=== PATIENT | female | born 1960 | race Caucasian/White ===

== ENCOUNTER → 2016-10-22 | Day surgery (SDC) | payer OTHER ==
[2016-10-17 10:23] VITALS: BMI 43.0
[~2016-10-22] VITALS: Ht 177.8 cm; Wt 135.9 kg
[~2016-10-22] MED LIST: AMLO-110 PO; ATOR10TA82 PO; CYM/30 PO; HYDC25 PO; LIDOCAINE HCL 2% 2 ML VIAL (20MG/ML) ONE; METO100T44 PO; NYST1POW7 TOP; OMEP40CA PO; ONDANSETRON INJ 2 MG/ML 2 ML VIAL IV PRN; PROPOFOL IV EMULSION 10 MG/ML 20 ML VIAL IV ONE; ROPI5TAB PO
[2016-10-22 08:41] VITALS: Ht 177.8 cm; Wt 135.9 kg
--- NOTE | 2016-10-22 09:10 | Endo History and Physical ---
History & Physical Date of Service: Oct 22, 2016. Chief Complaint: Hx of polyps,acid reflux,change in bowel habits Referring Physician: Dr Hinson History of Present Illness Patient with a history of colon polyps and reflux for a surveillance colonoscopy and EGD today. Notes having progressive diarrhea over the past few months, no new medications or recent abx courses. Past Medical History Reflux, Hypertension, Depression Past Surgical History Hx Cardiac Surgery: No Hx Abdominal Surgery: No Hx Post-Op Nausea and Vomiting: No Hx Cancer Surgery: No Hx Thoracic Surgery: No Hx Orthopedic: Yes (LUMBAR DISCECTOMY) Hx Urinary Tract Surgery: No Family History IBD Social History Smoking Status: Never Smoker Hx Substance Use: No Hx Alcohol Use: No Allergies Coded Allergies: Morphine (Verified Adverse Reaction, Mild, NAUSEA/VOMITING, 10/17/16) Current Medications Reported Home Medications Medications Dose Route/Sig Max Daily Dose Days Date Category Toprol-Xl (Metoprolol Succinate) 100 Mg Tabcr 100 Mg PO QAM 10/17/16 Reported Norvasc (Amlodipine Besylate) 5 Mg Tab 5 Mg PO QAM 10/17/16 Reported Requip (Ropinirole HCl) 5 Mg Tab 10 Mg PO HS 09/25/16 Reported Cymbalta (Duloxetine HCl) 30 Mg Cap 1 Cap PO HS 30 01/04/16 Reported Nystatin (Nystatin (Topical)) 1 Pow Pow 1 Appl TOP BID PRN 06/10/13 Reported Lipitor (Atorvastatin Calcium) 10 Mg Tab 10 Mg PO QAM 06/10/13 Reported Prilosec (Omeprazole) 40 Mg Capcr 40 Mg PO BID 06/10/13 Reported Hctz * (Hydrochlorothiazide) 25 Mg Tab 25 Mg PO QAM 04/16/11 Reported Vital Signs Weight (Kilograms): 135.91 Height (Feet): 5 Height (Inches): 10 Date Time Temp Pulse Resp B/P (MAP) Pulse Ox O2 Delivery O2 Flow Rate FiO2 10/22/16 09:01 36.8 82 20 176/103 (127) 96 Room Air Physical Exam General Appearance: no apparent distress Respiratory/Chest: Auscultation: breath sounds normal Cardiovascular: Heart Auscultation: RRR Abdomen: Inspection & Palpation: soft Assessment and Plan Patient for EGD and colonoscopy for evaluation of diarrhea / globus sensation. We have discussed the risks to include bleeding, infection, perforation, pain, and missed polyps. Plan EGD Colonoscopy
--- NOTE | 2016-10-22 09:49 | Discharge Instructions ---
Endoscopy Patient Instructions Date / Procedure(s) Performed Oct 22, 2016. Colonoscopy, EGD Allergy Information Coded Allergies: Morphine (Verified Adverse Reaction, Mild, NAUSEA/VOMITING, 10/17/16) Discharge Date / Findings Oct 22, 2016. 1 colon polyp Internal hemorrhoids several gastric polyps Medication Instructions Reported Home Medications Medications Dose Route/Sig Max Daily Dose Days Date Category Toprol-Xl (Metoprolol Succinate) 100 Mg Tabcr 100 Mg PO QAM 10/17/16 Reported Norvasc (Amlodipine Besylate) 5 Mg Tab 5 Mg PO QAM 10/17/16 Reported Requip (Ropinirole HCl) 5 Mg Tab 10 Mg PO HS 09/25/16 Reported Cymbalta (Duloxetine HCl) 30 Mg Cap 1 Cap PO HS 30 01/04/16 Reported Nystatin (Nystatin (Topical)) 1 Pow Pow 1 Appl TOP BID PRN 06/10/13 Reported Lipitor (Atorvastatin Calcium) 10 Mg Tab 10 Mg PO QAM 06/10/13 Reported Prilosec (Omeprazole) 40 Mg Capcr 40 Mg PO BID 06/10/13 Reported Hctz * (Hydrochlorothiazide) 25 Mg Tab 25 Mg PO QAM 04/16/11 Reported Provider Instructions Activity Restrictions - No exercising or heavy lifting for 24 hours. - Do not drink alcohol the day of the procedure. - Do not drive a car or operate machinery until the day after the procedure. - Do not make any important decisions or sign important papers in 24 hours after the procedure. Following Day: - Return to full activity which may include returning to work/school. Diet Start your diet with liquids and light foods (jello, soup, juice, toast). Then eat your usual diet if not nauseated. Treatment For Common After Affects For mild abdominal pain, bloating, or excessive gas: - Rest - Eat lightly - Lie on right side Follow-Up Information Await pathology results No evidence of GERD today as cause of the "globus symptoms" consider an ENT evaluation Anesthesia Information What You Should Know You have had a procedure that required some medicine to reduce anxiety and discomfort. This treatment is called moderate sedation. After receiving the treatment, you may be sleepy, but you will be able to breathe on your own. The effects of the treatment may last for several hours. Follow these instructions along with Activity/Diet recommendations noted above: * Do NOT do anything where dizziness or clumsiness would be dangerous. * Rest quietly at home today, then you can be up and about tomorrow. * Have a responsible person stay with you the rest of today. * You may have had an I.V. today. If so, you may take the dressing off later today. Recommendations Call your doctor if: * Trouble breathing * Continuous vomiting for more than 24 hours * Temperature above 101 degrees * Severe abdominal pain or bloating * Pain not relieved by pain medicine ordered * There is increased drainage or redness from any incision * A large amount of rectal bleeding greater than 2-3 tablespoons. (If you had a polyp/s removed or have hemorrhoids, a small amount of blood - from the rectum is to be expected.) * You have any unanswered questions or concerns. IN THE EVENT OF A SERIOUS EMERGENCY, GO TO THE NEAREST EMERGENCY ROOM Your discharge instructions were prepared by provider Marija Myers. Patient Instructions Signature Page Yaima Jacobs Patient (or Guardian) Signature/Date: I have read and understand the instructions given to me by my caregivers. Caregiver/RN/Doctor Signature/Date: The above-named patient and/or guardian has received patient instructions on this date. + Original Patient Signature Page (only) stays with chart. Please make copy for patient.
--- NOTE | 2016-10-22 09:54 | GI REPORT ---
Procedure Date: 10/22/2016 9:10 AM Procedure: Upper GI endoscopy Indications: Diarrhea, Globus sensation Medicines: Monitored Anesthesia Care Complications: No immediate complications. Estimated blood loss: Minimal. Estimated Blood Loss: Estimated blood loss was minimal. Procedure: Pre-Anesthesia Assessment: - Prior to the procedure, a History and Physical was performed, and patient medications, allergies and sensitivities were reviewed. The patient's tolerance of previous anesthesia was reviewed. - The risks and benefits of the procedure and the sedation options and risks were discussed with the patient. All questions were answered and informed consent was obtained. - Patient identification and proposed procedure were verified prior to the procedure by the physician, the nurse and the results technician. The procedure was verified in the procedure room. - Pre-procedure physical examination revealed no contraindications to sedation. - ASA Grade Assessment: III - A patient with severe systemic disease. - After reviewing the risks and benefits, the patient was deemed in satisfactory condition to undergo the procedure. - The anesthesia plan was to use moderate sedation/analgesia (conscious sedation). - The anesthesia plan was to use monitored anesthesia care (MAC). - Immediately prior to administration of medications, the patient was re-assessed for adequacy to receive sedatives. - The heart rate, respiratory rate, oxygen saturations, blood pressure, adequacy of pulmonary ventilation, and response to care were monitored throughout the procedure. - The physical status of the patient was re-assessed after the procedure. After obtaining informed consent, the endoscope was passed under direct vision. Throughout the procedure, the patient's blood pressure, pulse, and oxygen saturations were monitored continuously. The scope was introduced through the mouth, and advanced to the third part of duodenum. The upper GI endoscopy was accomplished without difficulty. The patient tolerated the procedure well. Findings: The examined esophagus was normal. The Z-line was regular and was found 39 cm from the incisors. Diffuse mild inflammation characterized by erythema and granularity was found in the entire examined stomach. Biopsies were taken with a cold forceps for histology. Estimated blood loss was minimal. Multiple 4 to 7 mm semi-sessile polyps with no bleeding and no stigmata of recent bleeding were found in the entire examined stomach. Biopsies were taken with a cold forceps for histology. The examined duodenum was normal. Biopsies for histology were taken with a cold forceps for evaluation of celiac disease. Estimated blood loss was minimal. Impression: - Normal esophagus. - Z-line regular, 39 cm from the incisors. - Gastritis. Biopsied. - Multiple gastric polyps. Biopsied. - Normal examined duodenum. Biopsied. Recommendation: - Perform a colonoscopy today. - Await pathology results. - There was no obvious cause of the globus sensation by EGD today. Consider an ENT evalaution if symptoms persist. Marija Myers D.O. Marija Myers, DO 10/22/2016 9:53:58 AM This report has been signed electronically. Note Initiated On: 10/22/2016 9:10 AM I attest to the content of the Intraoperative Record and orders documented therein, exceptions below
--- NOTE | 2016-10-22 09:57 | GI REPORT ---
Procedure Date: 10/22/2016 9:28 AM Procedure: Colonoscopy Indications: High risk colon cancer surveillance: Personal history of colonic polyps, Incidental diarrhea noted Medicines: Monitored Anesthesia Care Complications: No immediate complications. Estimated blood loss: Minimal. Estimated Blood Loss: Estimated blood loss was minimal. Procedure: Pre-Anesthesia Assessment: - Prior to the procedure, a History and Physical was performed, and patient medications, allergies and sensitivities were reviewed. The patient's tolerance of previous anesthesia was reviewed. - The risks and benefits of the procedure and the sedation options and risks were discussed with the patient. All questions were answered and informed consent was obtained. - Patient identification and proposed procedure were verified prior to the procedure by the physician, the nurse and the management services technician. The procedure was verified in the procedure room. - Pre-procedure physical examination revealed no contraindications to sedation. - ASA Grade Assessment: III - A patient with severe systemic disease. - After reviewing the risks and benefits, the patient was deemed in satisfactory condition to undergo the procedure. - The anesthesia plan was to use monitored anesthesia care (MAC). - Immediately prior to administration of medications, the patient was re-assessed for adequacy to receive sedatives. - The heart rate, respiratory rate, oxygen saturations, blood pressure, adequacy of pulmonary ventilation, and response to care were monitored throughout the procedure. - The physical status of the patient was re-assessed after the procedure. After I obtained informed consent, the scope was passed under direct vision. Throughout the procedure, the patient's blood pressure, pulse, and oxygen saturations were monitored continuously. The scope was introduced through the anus and advanced to the cecum, identified by appendiceal orifice and ileocecal valve. The colonoscopy was performed without difficulty. The patient tolerated the procedure well. The quality of the bowel preparation was good. Findings: The perianal and digital rectal examinations were normal. Pertinent negatives include normal sphincter tone. Normal mucosa was found in the entire colon. Biopsies for histology were taken with a cold forceps from the entire colon for evaluation of microscopic colitis. Fluid aspiration was performed through the scope suction channel. Sample(s) were sent for bacterial cultures, Clostridium difficile and ova and parasites. A 5 mm polyp was found in the descending colon. The polyp was sessile. The polyp was removed with a cold biopsy forceps. Resection and retrieval were complete. Estimated blood loss was minimal. Internal hemorrhoids were found during retroflexion. The hemorrhoids were mild. The exam was otherwise without abnormality. Impression: - Normal mucosa in the entire examined colon. Biopsied. Fluid aspiration performed. - One 5 mm polyp in the descending colon, removed with a cold biopsy forceps. Resected and retrieved. - Internal hemorrhoids. - The examination was otherwise normal. Recommendation: - Discharge patient to home (ambulatory). - Advance diet as tolerated today. - Await pathology results. - Repeat colonoscopy in 5 years for surveillance based on pathology results. - Return to nurse practitioner PRN. Marija Myers D.O. Marija Myers, 10/22/2016 9:56:56 AM This report has been signed electronically. Note Initiated On: 10/22/2016 9:28 AM I attest to the content of the Intraoperative Record and orders documented therein, exceptions below
[2016-10-22 10:07] VITALS: BP 129/78; PULSE 62; O2SAT 97
--- NOTE | 2016-10-22 10:11 | Anesthesiology Progress Note ---
Anesthesia Post Op Note Date & Time Oct 22, 2016 at 10:11 Vital Signs Pain Intensity: 0 Vital Signs Past 12 Hours Date Time Temp Pulse Resp B/P (MAP) Pulse Ox O2 Delivery O2 Flow Rate FiO2 10/22/16 10:07 62 20 129/78 (95) 97 Room Air 10/22/16 09:52 64 20 114/65 (81) 98 Room Air 10/22/16 09:01 36.8 82 20 176/103 (127) 96 Room Air Notes Mental Status: alert / awake / arousable, participated in evaluation Pt Amnestic to Procedure: Yes Nausea / Vomiting: adequately controlled Pain: adequately controlled Airway Patency, RR, SpO2: stable & adequate BP & HR: stable & adequate Hydration State: stable & adequate Anesthetic Complications: no major complications apparent
[2016-10-29 13:44] LABS: CRYPTOSPORIDIUM AG TC 37213 NOT DETECTED (NOT DETECTED); ISOSPORA+CYCLOSPORA NOT DETECTED (NOT DETECTED); O&P GIARDIA AG NOT DETECTED (NOT DETECTED); O&P SOURCE OTHER-STY
== END | disposition home or self-care (01) ==
LOC: C.GI 08:32
PROVIDERS: ATTEND Internal Medicine Gastroenterology
DX: Z12.11 Encounter for screening for malignant neoplasm of colon (principal); D12.4 Benign neoplasm of descending colon; K64.8 Other hemorrhoids; Z86.010 Personal history of colon polyps; K31.7 Polyp of stomach and duodenum; K29.50 Unspecified chronic gastritis without bleeding; K52.9 Noninfective gastroenteritis and colitis, unspecified; I10 Essential (primary) hypertension; K21.9 Gastro-esophageal reflux disease without esophagitis; F32.9 Major depressive disorder, single episode, unspecified; Z83.79 Family history of other diseases of the digestive system; Z79.899 Other long term (current) drug therapy; K29.80 Duodenitis without bleeding

== ENCOUNTER → 2017-07-28 | Day surgery (SDC) | payer OTHER ==
[~2017-07-28] VITALS: Ht 177.8 cm; Wt 137.0 kg
[~2017-07-28] MED LIST changes: +ACETAMINOPHEN 325 MG TAB PO PRN; +AMT10 PO; +ASPI81TA28 PO; +FENTANYL CITRATE INJ 50 MCG/1 ML 2 ML VIAL ONE; +FERR1TAB13 PO; +FLVHFA110 INH; +HEPARIN SOD (PORCINE) 1000 UNIT/ML 10 ML VIAL ONE; +LIDOCAINE HCL 1% 20 ML VIAL ONE; -LIDOCAINE HCL 2% 2 ML VIAL (20MG/ML) ONE; +MAGN400T6 PO; +METO25TA3 PO; +MIDAZOLAM HCL 1 MG/ML 2ML VIAL ONE; +NITROGLYCERIN/D5W 100MCG/ML 20ML SYR ONE; +NiCARDipine HCL INJ 2.5 MG/ML 10 ML AMP ONE; +POTA20TA16 PO; -PROPOFOL IV EMULSION 10 MG/ML 20 ML VIAL IV ONE; +ROPI3TAB PO; +SODIUM CHLORIDE 0.9% 1000ML 250 ML IV PRN; +VNTHFA/IN INH
[2017-07-28 07:36] VITALS: BP 164/78; PULSE 70; TEMP 37.3; O2SAT 98; Ht 177.8 cm; Wt 137.0 kg
--- NOTE | 2017-07-28 08:30 | History & Physical Bridge Note ---
H&P Re-Evaluation Bridge Note: I have examined the patient, reviewed the History & Physical and in the interval since the performance of the History & Physical I have noted the following changes of clinical significance: No changes noted
--- NOTE | 2017-07-28 08:30 | Pre Sedation Assessment ---
Pre Sedation Assessment General Date of Sedation: Jul 28, 2017. Vital Signs Past 12 Hours Date Time Temp Pulse Resp B/P (MAP) Pulse Ox O2 Delivery O2 Flow Rate FiO2 07/28/17 07:36 37.3 70 18 164/78 (106) 98 Room Air Review Cardiovascular: regular rate, rhythm, no edema, no gallop Lungs: chest non-tender, lungs clear Pre-Sedation Airway Assessment Smoking Status: Never Smoker Hx of Sleep Apnea: No Short Thick Neck: No Thyro-mental Distance: > 3 Finger Breadths Oral Cavity: Dentures Mallampati Classification: Class II ASA Classification: Class II NPO Status Date of Last Intake of Fluids: Jul 27, 2017 Date of Last Intake of Solids: Jul 27, 2017 Procedure Planning Contraindications for Sedation: None Current Medications Reviewed: Yes Notes The planned sedation has been discussed with the patient. Informed Consent was obtained. I have identified the patient, determined the appropriateness of sedation and have assessed the patient immediately prior to the procedure. All medicine(s) and interventions are by my order.
--- NOTE | 2017-07-28 09:22 | Cardiac Catheterization ---
Procedure Note Procedure Date Jul 28, 2017. 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 Start 0837. End 0900. Sedation monitor: Marisa Collins RN Procedural Complication(s) None Disposition Paster Hat Lining Holding/Recovery ACC Data Cardiac Status Clinical evaluation leading to the procedure Coronary Anatomy Dominant: Right Left Main (% Stenosis): Normal LAD (% Stenosis): Normal D1 (% Stenosis): Normal (large mid-bifurcating vessel running parallel to LAD) Circumflex (% Stenosis): Normal OM1 (% Stenosis): Normal L PL1 (% Stenosis): Normal L PL2 (% Stenosis): Normal RCA (% Stenosis): Normal R PDA (% Stenosis): Normal R PL1 (% Stenosis): Normal AM (% Stenosis): Normal Ramus (% Stenosis): Ostial (20%) Diagnostic Status: Elective Closure Device Percutaneous Entry Location: Radial Closure Device: Radial Band Recommendations: Medical therapy and/or Counseling Intraprocedure Events Significant Dissection: No Perforation: No
--- NOTE | 2017-07-28 09:23 | Post Sedation Assessment ---
Post Sedation Assessment General Date of Sedation Jul 28, 2017. Vital Signs: Vital Signs Past 12 Hours Date Time Temp Pulse Resp B/P (MAP) Pulse Ox O2 Delivery O2 Flow Rate FiO2 07/28/17 09:05 63 18 151/83 (105) 100 Room Air 07/28/17 09:00 65 18 141/78 (99) 100 Room Air 07/28/17 07:36 37.3 70 18 164/78 (106) 98 Room Air Post Procedure Recovery Score Activity: (2) Moves 4 extremities * Respiration: (2) Deep breath/cough Circulation: (2) +/-20% PreAnes Value Consciousness: (2) Fully Awake Oxygen Saturation: (2) > 92% On Room Air Post Anesthesia Score: 10 Discharge Sedation Level of Care: Fast Track Phase II Post Sedation Plan On clinical assessment, the patient appears to have tolerated the sedation without complications. Patient is recovering as anticipated. Patient will continue to be monitored by nursing and may be discharged when sedation discharge criteria are met per below protocol. Upon Completions of procedure and additional 15 minutes continue every 5 minute vital signs and the P.A.R. score; then discharge to a Phase I or Fast Track to Phase II per the following guidelines: * Discharge Patient to appropriate Phase II area if PAR is 8 or greater or return to pre- procedure baseline. The post - procedure orders will be as directed. * If PAR score is less than 8 or not return to pre-procedure baseline then patient will follow Phase I monitoring till PAR is reached for Phase II. The Phase I may be done in procedure room or may call to secure a Phase I area. * If naloxone or flumazenil are used for reversal, hold in Phase I for an additional 60 -120 minutes before discharge to Phase II. Please call the Sedation Physician to re-evaluate and complete post-note for discharge to Phase II area. Do NOT discharge from procedure sedation or Phase 1 until post- sedation evaluation note is complete by procedure /sedation MD Sedation Discharge Instructions to be given to the patient at discharge to home.
--- NOTE | 2017-07-28 09:27 | Discharge Instructions ---
Discharge Instructions Procedure Procedure Date: Jul 28, 2017. Reason for Visit: Chest Pain *Kopinski To Do*. Discharge Discharge Date: Jul 28, 2017. Discharge Diagnosis: Status post cardiac catheterization with mild branch vessel CAD. Last Recorded Wt (Kilograms): 137 Anesthesia Post Anesthesia Instructions: If you have had General Anesthesia or IV Sedation: * Do not drive today. * Resume driving when surgeon permits. * Do not make important decisions or sign legal documents today. * Call surgeon for: 1. Temperature elevations greater than 101 degrees F. 2. Uncontrollable pain. 3. Excessive bleeding. 4. Persistent nausea and vomiting. 5. Medication intolerance (nausea, vomiting or rash). * For nausea and vomiting use only clear liquids such as: tea, soda, bouillon until nausea subsides, then gradually increase diet as tolerated. * If you have any concerns or questions, call your surgeon's office. If physician is unavailable and it is an emergency, call 911 or go to the nearest emergency room. Instructions Activity Recommendations: limitations as noted below Return to School/Work: with the following limitations Recommended Home Diet: low cholesterol Allergies: Coded Allergies: Morphine (Verified Adverse Reaction, Mild, NAUSEA/VOMITING, 10/17/16) Provider Instructions ACTIVITY RECOMMENDATIONS: Excess manipulation of the wrist should be avoided for the next 24-48 hours. * No lifting over 2 pounds (approximately a 1/2 gallon of milk) with the utilized arm for 24 hours. * No strenuous activity such as bowling or tennis for 3 days. * Keep the site of the procedure covered with a bandage for 24 hours. *You may shower the day after the procedure. Do not take a tub bath or submerge the puncture site in water for the next 3 days. *Do not operate any motorized equipment for 3 days. SPECIAL CARE INSTRUCTIONS: The site may be slightly bruised and sore following your procedure. Should any of the following occur, contact the Dr. who performed your procedure. 1. Redness/inflammation, swelling, chills, or fever, or colored drainage at procedure site within 3-7 days after your procedure. 2. Coldness, discoloration, ongoing numbness, severe pain, or swelling. Expect mild tingling of hand and tenderness at the puncture site for up to three days. If this persists beyond three days, or other symptoms develop, notify the Dr. who performed your procedure. BLEEDING: If the procedure site on your wrist begins to bleed, do not panic 1. Place 1 or 2 fingers firmly just slightly above the insertion site to stop the bleeding. You may be able to feel your pulse as you hold pressure. 2. Lift your finger after 5 minutes to see if the bleeding has stopped. 3. Once the bleeding has stopped, gently wipe the wrist area clean with a bandage. * If the bleeding from your wrist does not stop after 10 minutes, or if there is a large amount of bleeding or spurting, call 911 ([address] drive yourself to the hospital). SKIN IRRITATION: * You may experience some redness and/or swelling in the area where radiation was administered. If any skin irritation occurs, please contact your family physician. FOLLOW UP VISIT: Keep any scheduled doctor appointments. Follow Up Follow-up with: PCP as scheduled. Pulmonary medicine consultation/follow up requested. Guero Jerome Recommendations: Call your doctor if: * Temperature above 101 degrees * Pain not relieved by pain medicine ordered * There is increased drainage or redness from any incision * You have any unanswered questions or concerns. Your Doctors Instructions noted above were prepared by provider Rusty Reynoso. Patient Signature Section: Patient Instructions Signature Page Yaima Jacobs Patient (or Guardian) Signature/Date: I have read and understand the instructions given to me by my caregivers. Caregiver/RN/Doctor Signature/Date: The above-named patient and/or guardian has received patient instructions on this date. + Original Patient Signature Page (only) stays with chart. Please make copy for patient.
[2017-07-28 11:00] VITALS: BP 134/70; PULSE 63; O2SAT 96
== END | disposition home or self-care (01) ==
LOC: C.CATH 07:14
PROVIDERS: ATTEND Physician Assistant
DX: I25.10 Atherosclerotic heart disease of native coronary artery without angina pectoris (principal); K21.9 Gastro-esophageal reflux disease without esophagitis; I12.9 Hypertensive chronic kidney disease with stage 1 through stage 4 chronic kidney disease, or unspecified chronic kidney disease; E66.9 Obesity, unspecified; G25.81 Restless legs syndrome; D50.9 Iron deficiency anemia, unspecified; J44.9 Chronic obstructive pulmonary disease, unspecified; N18.3 Chronic kidney disease, stage 3 (moderate); Z82.49 Family history of ischemic heart disease and other diseases of the circulatory system; Z83.3 Family history of diabetes mellitus; Z80.3 Family history of malignant neoplasm of breast; Z79.82 Long term (current) use of aspirin

== ENCOUNTER → 2017-08-24 | Outpatient (CLI) | payer OTHER ==
[~2017-08-24] MED LIST changes: -ACETAMINOPHEN 325 MG TAB PO PRN; -FENTANYL CITRATE INJ 50 MCG/1 ML 2 ML VIAL ONE; -HEPARIN SOD (PORCINE) 1000 UNIT/ML 10 ML VIAL ONE; -LIDOCAINE HCL 1% 20 ML VIAL ONE; -MIDAZOLAM HCL 1 MG/ML 2ML VIAL ONE; -NITROGLYCERIN/D5W 100MCG/ML 20ML SYR ONE; -NiCARDipine HCL INJ 2.5 MG/ML 10 ML AMP ONE; -ONDANSETRON INJ 2 MG/ML 2 ML VIAL IV PRN; +POTA-639 PO; -POTA20TA16 PO; -ROPI5TAB PO; -SODIUM CHLORIDE 0.9% 1000ML 250 ML IV PRN
--- NOTE | 2017-08-25 06:05 | PAP/PSG TECHNICIAN REPORT ---
[facility] Mechatronics Engineer Polysomnogram Report Study name: None Report date: 08/25/2017 Study date: 08/24/2017 Referring Physician: MARÍA RIVERA D.O. Name: YOGESH JACOBS Interpreting Physician: Sirena Jaramillo M.D. Date of : 1960 Mechatronics Engineer: Caroline Dover, PSGT. Sex: Female Age: 57 StudyType: PSG Weight: 308 lbs Height: 57 years, Height 5' 9.5" Neck Circum:15.25 inches BMI: 44.83 Medications: Ventolin, Elavil, Norvasc, Aspirin, Lipitor, Cymbalta, Feosol advair, htcz, Toprol, Nystop,Prilosec, Potassium Chloride ER, Ropinirole. Patient History 57-year-old female with a history of copd, htn, anemia, mild asthma and obesity presents to the sleep lab for a diagnostic sleep study. Ess=15, Neck = 15.25 inches. Parameters Monitored NPSG: E1-M2, E2-M1, Fp1-M2, Fp2-M1, F3-M2, F4-M2, F4-M1, C3-M2, C4-M2, C4-M1, O1-M2, O2-M2, O2-M1, T3-M2, T4-M1, P3-M2, P4-M1, CHIN1, CHIN2, HR, EKG, Legs, PFLOW, SNOR, FLOW, CFLOW, Tidal Volume, THOR, ABDO, SpO2, PLTH, CPRESS, ETCO2 Wave, ETCO2, pH Sleep Architecture Sleep Stages Time at Lights Off 10:52:02 PM STAGES Time (min.) TST (%) Time at Lights On 5:34:02 AM Wake 226.5 -- Total Recording Time (TRT) 403.00 min. N1 32.5 19 Total Sleep Period (TSP) 304.0 min. N2 129.0 74 Total Sleep Time (TST) 175.5min. N3 14.0 8 Awake Time 227.5 min. REM 0.0 0 Wake after Sleep Onset 182.5 min. Sleep Efficiency (SE) 44 % Sleep Onset Latency (OLGA LIDIA) 44.0 min. Number of Stage 1 Shifts None Awakenings 19 Stage Changes 69 Number of REM periods N/A REM 0.0 0 REM Latency NONE min. NREM 175.5 100 Body Position Analysis Supine Right Left Side Prone Vertical Total Sleep Time (min.) 11.2 155.3 20.2 175.50 0.0 0.0 Total Sleep Time (%) 0% 88% 12% 100 0% N/A% Total Sleep Time REM (min.) 0.0 0.0 0.0 None 0.0 0.0 Total Sleep Time NREM (min.) 0.0 155.3 20.2 None 0.0 0.0 Intermittent Wake (min.) 11.2 64.3 151.0 None 0.0 0.0 Total Sleep Period (%) 0% None None None None None Arousals Myoclonus (PLM) * Events Count Index Events Count Index Spontaneous 34 12 Events Awake (PLMW) 6 1.6 Respiratory 0 0.0 Events Asleep w/ Arousal (PLMA) 2 0.7 PLM 2 1 Events Asleep w/o Arousal (PLMS) 61 20.9 Snoring 10 3 Total Asleep 63 21.5 Total 46 16 Total 69 10 Respiratory Analysis * CA OA MA CH H RERA Total Count 0 0 0 0 0 0 0 Index 0.0 0.0 0.0 0 0.0 0 0.0 Mean Duration 0.0 0.0 0.0 0.00 0.0 0.0 0.0 Longest Duration 0.0 0.0 0.0 0.00 0.0 0.0 0.0 Respiratory Event Summary Total Supine ~Supine Right Left Prone REM NREM Apneas Count 0 N/A 0 0 0 N/A N/A 0 Index 0.0 N/A 0 0.0 0.0 N/A N/A 0 Hypopneas (4% Desat) Count 0 N/A 0 0 0 N/A N/A 0 Index 0.0 N/A 0 0.0 0.0 N/A N/A 0.0 Apneas & All Hypopneas Count 0 N/A 0 0 0 N/A N/A 0 Index 0.0 N/A 0 0 0 N/A N/A 0.0 Respiratory Events (Watershed Program Manager+All Hyp+RERA) Count 0 N/A 0 0 0 N/A N/A 0 Index 0.0 N/A 0 0.0 0.0 N/A N/A 0.0 Respiratory Related Arousal Count 0 N/A 0 0 0 N/A N/A 0 Index 0.0 N/A 0 0 0 N/A N/A 0 Snoring Analysis Supine Right Left Prone REM NREM Total Snore duration 17.8 min Snores count N/A 867 194 N/A N/A 1,061 1,061 Snore mean duration 1.0 Sec Snores index N/A 335 576 N/A N/A 362.7 362.7 TST with snoring (%) 10.1% SpO2 Analysis Total REM NREM Awake <50% 0.0 min. 0.0 min. 0.0 min. 0.0 min. 51 - 60% 0.0 min. 0.0 min. 0.0 min. 0.0 min. 61 - 70% 0.0 min. 0.0 min. 0.0 min. 0.0 min. 71 - 80% 0.1 min. 0.0 min. 0.0 min. 0.1 min. 81 - 90% 290.5 min. 0.0 min. 144.8 min. 145.7 min. 91 - 100% 101.0 min. 0.0 min. 29.7 min. 71.3 min. Average 90 0 89 90 Minimum SpO2 80 N/A 86 80 Desaturation Event Index 0.6 0.0 1.4 0.0 # Desat. Events below 89% 4 N/A 4 0 Time(%) with Saturation below 89% 26.1 0.0 10.4 15.7 Time(min.) with Saturation below 89% 102.2 0.0 40.6 61.5 Heart Rate Analysis End Tidal CO2 Analysis Min (bpm) Max (bpm) Average (bpm) TSP (mins) % of TSP Awake 52 81 61 Above 55 mmHg 0.0 0.0 NREM 55 127 62 50-55 mmHg 0.0 0.0 REM N/A N/A N/A 45-50 mmHg 0.0 0.0 Overall 55 127 62 40-45 mmHg 97.0 55.3 35-40 mmHg 75.0 42.7 30-35 mmHg 1.7 1.0 Average ETCO2 0.0 Supplemental O2 Values Minimum O2 level: None Value Start Time End Time Mechatronics Engineer Comments PSG Study MS. Jacobs slept in the right, left, and supine positions. No cardiac arrhythmia or PLM's noted. No bruxism noted. Snoring was noted and scored as a 2 on a scale of 1 through 5. (0=no snoring, 5=snoring loud enough to be heard through a closed door or down the [address] way) Ms. Jacobs awoke to use the restroom one time during the night. Ms. Jacobs stated, I did not sleep as well as I do when I am in my own bed. The final report will be interpreted and signed by a sleep physician. The completed physician report will then be placed in the patient medical record. Therapy (cm H2O) 0 TIB (min.) 402.0 TST (min.) 175.5 Sleep Onset (min.) 44.0 REM Onset From Sleep (min.) NONE Sleep Efficiency % 44 Wakefulness (%) 56 Wakefulness (min.) 227.5 NREM 1 (%) 19 NREM 1 (min.) 32.5 NREM 2 (%) 74 NREM 2 (min.) 129.0 NREM 3 (%) 8 NREM 3 (min.) 14.0 REM (%) 0 REM (min.) 0.0 # Arousals 46 Arousal Index 16 # Snore 1,061 Snore Index 362.7 AHI 0.0 AHI Supine N/A AHI Non-Supine 0 NREM AHI 0.0 REM AHI N/A RDI 0.0 # Obstructive Apnea 0 # Central Apnea 0 # Mixed Apnea 0 # Hypopneas 0 RERAs 0 Total Respiratory Events 0 Time Below SpO2 89% (min.) 40.6 Mean NREM SpO2 (%) 89 Mean REM SpO2 (%) N/A Mean Sleep SpO2 (%) 89 Min NREM SpO2 (%) 86 Min REM SpO2 (%) N/A Position Supine (min.) 11.2 Position Non-supine (min.) 175.5 LM Index Sleep 21.5 LM Index NREM 21.5 LM Index REM N/A Mean Heart Rate (bpm) 62 Min Heart Rate (bpm) 55
--- NOTE | 2017-08-27 14:24 | POLYSOMNOGRAPH REPORT ---
CLINICAL DATA: A 57-year-old female with BMI of 44.[address] Hinson and Dr. Jaramillo for evaluation of sleep apnea. She has a history of COPD, hypertension, mild asthma, and obesity. Her Twain sleepiness score was elevated at 15/24. SLEEP ARCHITECTURE: Total sleep period was 304 minutes. Total sleep time was 175.5 minutes, all non-REM sleep. Sleep latency was delayed at 44 minutes. Sleep efficiency was reduced at 44%. Wake after sleep onset was elevated at 182.5 minutes. Sleep consisted of stage N1 19%, stage N2 74%, and stage N3 8%. AROUSAL DATA: 46 arousals were recorded for an index of 16 per hour. 34 were spontaneous. PERIODIC LIMB MOVEMENT DATA: 63 limb movements during sleep were noted for an index of 21.5 per hour with arousal index of 0.7 per hour. RESPIRATORY DATA: There was no evidence of sleep apnea seen. The AHI was 0. No respiratory events were recorded. OXIMETRY DATA: Nocturnal hypoxemia was seen. Oxygen alex was 86%. Mean saturation was 90%. Time below 89% was 102 minutes. EKG: Heart ranged from 55-127 beats per minute. No arrhythmias were noted. ELECTRICAL ENGINEERING TECHNICIAN'S COMMENTS: The patient slept in the right, left, and supine position. Snoring was mild, rated 2 on a scale of 1-5. The patient did show frequent awakenings throughout the night. IMPRESSION: No evidence of clinically significant sleep apnea/hypopnea. The patient did have nocturnal hypoxemia with an oxygen alex of 86%. Time below 89% of 102 minutes. RECOMMENDATIONS: The patient may benefit from weight loss. Use of nocturnal oxygen may be of benefit. Clinical correlation is needed. [facility]
== END | disposition home or self-care (01) ==
LOC: C.NEUR 20:00
PROVIDERS: ATTEND Internal Medicine
DX: G47.33 Obstructive sleep apnea (adult) (pediatric) (principal)

== ENCOUNTER 2021-12-16 06:12 | Inpatient (IN) ==
--- NOTE | 2021-11-04 11:50 | PAT Medication Instructions ---
Medication Instructions Date of Service November 04, 2021 Home Medications Medication Instructions Recorded acetaminophen 325 mg tablet 975 mg PO Q6H PRN #30 tab 12/09/19 (Tylenol) amlodipine 5 mg tablet 5 mg PO QAM aspirin 81 mg tablet,delayed release (Aspir-) 81 mg PO QAM atorvastatin 40 mg tablet 40 mg PO QAM cholecalciferol (vitamin D3) 125 mcg (5,000 unit) tablet (Vitamin D3) 125 mcg PO QAM docusate sodium 100 mg capsule (Stool Softener) 100 mg PO HS duloxetine 60 mg capsule,delayed release sprinkle (Drizalma Sprinkle) 60 mg PO HS ferrous sulfate 325 mg (65 mg iron) tablet (iron) 325 mg PO BID magnesium 250 mg tablet 500 mg PO QAM metoprolol succinate 100 mg tablet,extended release 24 hr 50 - 75 mg PO BID omeprazole 40 mg capsule,delayed release 40 mg PO BID ropinirole 3 mg tablet (Requip) 3 mg PO HS acetaminophen 325 mg tablet (Tylenol) 975 mg PO Q6H PRN losartan 25 mg tablet 25 mg PO QAM pregabalin 150 mg capsule (Lyrica) 150 mg PO TID ASK your prescriber and surgeon aspirin 81 mg tablet,delayed release (Aspir-) 81 mg PO QAM DO NOT take the morning of surgery cholecalciferol (vitamin D3) 125 mcg (5,000 unit) tablet (Vitamin D3) 125 mcg PO QAM ferrous sulfate 325 mg (65 mg iron) tablet (iron) 325 mg PO BID magnesium 250 mg tablet 500 mg PO QAM losartan 25 mg tablet 25 mg PO QAM Take morning of surgery With a small sip of water, OTHERWISE NOTHING TO EAT OR DRINK AFTER MIDNIGHT: amlodipine 5 mg tablet 5 mg PO QAM atorvastatin 40 mg tablet 40 mg PO QAM metoprolol succinate 100 mg tablet,extended release 24 hr 50 - 75 mg PO BID omeprazole 40 mg capsule,delayed release 40 mg PO BID acetaminophen 325 mg tablet (Tylenol) 975 mg PO Q6H PRN (okay to take up to 4 hours prior to surgery if needed) pregabalin 150 mg capsule (Lyrica) 150 mg PO TID Take evening before surgery docusate sodium 100 mg capsule (Stool Softener) 100 mg PO HS duloxetine 60 mg capsule,delayed release sprinkle (Drizalma Sprinkle) 60 mg PO HS ferrous sulfate 325 mg (65 mg iron) tablet (iron) 325 mg PO BID metoprolol succinate 100 mg tablet,extended release 24 hr 50 - 75 mg PO BID omeprazole 40 mg capsule,delayed release 40 mg PO BID ropinirole 3 mg tablet (Requip) 3 mg PO HS acetaminophen 325 mg tablet (Tylenol) 975 mg PO Q6H PRN (if needed) pregabalin 150 mg capsule (Lyrica) 150 mg PO TID Other Notes If you have any questions please call us at [phone] or [phone] or [phone] or [phone]
--- NOTE | 2021-11-08 08:44 | Anesthesiology Consultation ---
Date of Service November 08, 2021 Assessment & Plan (1) Encounter for pre-operative examination: - Patient acceptable risk pending surgeon-ordered cardiology preop evaluation ([facility]; 11/18). - COVID screening: Per assessment on 11/08: No known COVID-19 positive contacts or current COVID-19 related symptoms. Travel screen negative. Patient vaccinated. Surgeon arranging preop COVID testing. Awaiting results. Chart Review Chart Review: Patient seen in Pre Admission Testing Teaching & Discussion Pre-Anesthesia Teaching/Discussion Notes: Instructed NPO after midnight before surgery,except medications with 15 cc of water. Medication instructions provided according to the PAT guidelines. History Surgery Operation Date: 11/22/21 10:05 Proposed Procedures p L5-S1 Posterior Fusion Instrumentation - Ken Palma DO Height/Weight Height: 5 ft 10 in Weight: 146.6 kg Allergies Allergy/AdvReac Type Severity Reaction Status Date / Time morphine AdvReac Mild N/V Verified 11/05/21 11:56 Medications Home Medications Medication Instructions Recorded Confirmed Last Taken amlodipine 5 mg tablet 5 mg PO QAM 11/16/19 11/04/21 12/09/19 08:00 aspirin 81 mg tablet,delayed 81 mg PO QAM 11/16/19 11/04/21 12/04/19 release (Aspir-) atorvastatin 40 mg tablet 40 mg PO QAM 11/16/19 11/04/21 12/09/19 08:00 cholecalciferol (vitamin D3) 125 125 mcg PO QAM 11/16/19 11/04/21 12/08/19 08:00 mcg (5,000 unit) tablet (Vitamin D3) docusate sodium 100 mg capsule 100 mg PO HS 11/16/19 11/04/21 12/08/19 22:00 (Stool Softener) duloxetine 60 mg capsule,delayed 60 mg PO HS 11/16/19 11/04/21 12/08/19 22:00 release sprinkle (Drizalma Sprinkle) ferrous sulfate 325 mg (65 mg 325 mg PO BID 11/16/19 11/04/21 12/08/19 22:00 iron) tablet (iron) magnesium 250 mg tablet 500 mg PO QAM 11/16/19 11/04/21 12/08/19 08:00 metoprolol succinate 100 mg 50 - 75 mg PO BID 11/16/19 11/04/21 12/08/19 22:00 tablet,extended release 24 hr omeprazole 40 mg capsule,delayed 40 mg PO BID 11/16/19 11/04/21 12/09/19 08:00 release ropinirole 3 mg tablet (Requip) 3 mg PO HS 11/16/19 11/04/21 12/07/19 22:00 acetaminophen 325 mg tablet 975 mg PO Q6H PRN #30 tab 12/09/19 11/04/21 Unknown (Tylenol) losartan 25 mg tablet 25 mg PO QAM 11/04/21 11/04/21 Unknown pregabalin 150 mg capsule (Lyrica) 150 mg PO TID 11/04/21 11/04/21 Unknown Past Medical History Medical History Acid reflux Controlled CAD (coronary artery disease) Mild, non-obstructive per 2018 cardiac cath Fibromyalgia Hiatal hernia High blood pressure High cholesterol Low back problem Hx injections (most recent 2019) Morbid obesity PSVT (paroxysmal supraventricular tachycardia) Restless leg syndrome Sleep apnea CPAP (complaint) Exercise / Class Metabolic Activity II 4-5 Yardwork/Stairs/Walk up hill (one FS (no CP, no SOB)) Past Family History Family History Other Family history of diabetes mellitus Past Surgical History Surgical History Family history of reaction to anesthesia Sister PONV History of back surgery No hardware History of cardiac cath 2017 (mild nonobstructive CAD, only 20% ostial ramus narrowing) History of colonoscopy Hx of dilation and curettage D&C, hysteroscopy, polypectomy (12/09/19): LMA 4 at [facility]. No issues noted per post-op anesthesia progress note. Hx of esophagogastroduodenoscopy Past Anesthesia History No Hx of Anesthesia Complications and No Family Hx of Anesthesia Complications (except sister PONV) History of PONV No Hx of PONV and No Hx of Motion Sickness Social History Smoking Status: Never smoker Do You Dip or Chew Tobacco: No Hx Alcohol Use: Yes Alcohol type: wine alcohol intake frequency: holidays/special occasions only Hx Substance Use: No substance use type: does not use Review of Systems Patient denies chest pain, shortness of breath, dyspnea on exertion, fever, chills, cough, wheezing, palpitations. Physical Exam Vital Signs VITALS BP 126/71 P 59 TEMP 98.1 SP02 96%RA RESP 16 PHYSICAL Full cervical extension range of motion. Full TMJ range of motion. TMD 4 finger breaths Mallampati Score 3 Dentition: upper/lower full dentures Lungs: clear throughout to auscultation Cardiac: regular rate and rhythm, no murmurs noted Spine: normal Carotid arteries: negative bruit Extremities: no edema Lab Results Anesthesia Preop Results Results Anesthesia Widget: WBC 3.55 K/uL (4.8-10.8) L 11/08/21 Hgb 11.6 g/dL (12.0-16.0) L 11/08/21 Hct 36.3 % (37-47) L 11/08/21 Plt 273 K/uL (130-400) 11/08/21 Na 139 mmol/L (136-145) 11/08/21 K 4.1 mmol/L (3.5-5.1) 11/08/21 Cl 103 mmol/L (98-107) 11/08/21 CO2 30 mmol/L (21-32) 11/08/21 BUN 24 mg/dl (6-23) H 11/08/21 Creat 0.97 mg/dl (0.6-1.2) 11/08/21 Glucose Level 119 mg/dl (70-99(Fasting)) H 11/08/21 PT 10.8 Seconds (9.0-12.0) 11/08/21 PTT 25.6 Seconds (21.0-31.0) 11/08/21 INR 1.0 (0.9-1.1) 11/08/21 Urine Color Yellow 11/08/21 Urine Appearance Clear (Clear) 11/08/21 Urine pH 6.5 (4.5-7.5) 11/08/21 Urine Specific [place] 1.016 (1.000-1.030) 11/08/21 Urine Protein Negative (Negative) 11/08/21 Urine Glucose (UA) Negative (Negative) 11/08/21 Urine Ketones Negative (Negative) 11/08/21 Urine Blood Negative (Negative) 11/08/21 Urine Nitrite Negative (Negative) 11/08/21 Urine Bilirubin Negative (Negative) 11/08/21 Urine Urobilinogen Negative (Negative) 11/08/21 Urine Leukocyte Esterase Negative (Negative) 11/08/21 Blood Type O Negative 11/08/21 Antibody Screen NEGATIVE 11/08/21 Testing Electrocardiogram Date: 06/25/21 SB at 58bpm. iRBBB. Cannot r/o anterior infarct (cited on/before 03/15/2020). Echo done 03/22/20* Chest X-Ray Date: 11/08/21 FINDINGS: PA and lateral chest radiographs are compared to study dated 12/01/2014. The cardiomediastinal silhouette is unremarkable. There is mild bibasilar atelectasis. The lungs and pleural spaces are otherwise clear. There is no pneumothorax. The skeletal structures are osteopenic. The bony thorax appears intact. IMPRESSION: No active disease in the chest. Echocardiogram Date: 03/22/20 LVEF 65-69%. Borderline cLV wall thickness increased. No RWMA. No significant valvular disease. Stress Test Date: 07/15/17 Type: exercise Stress echo/EKG negative for inducible ischemia. Exercise capacity below average. 5.5 METS. Patient experienced chest heaviness and dyspnea at peak workload which resulted in termination of exercise. 85% MPHR. LVEF 55-59%. No significant valvular disease. Grade 1 diastolic dysfunction. Cardiac Catheterization Date: 07/28/17 Dominant: Right Left Main (% Stenosis): Normal LAD (% Stenosis): Normal D1 (% Stenosis): Normal (large mid-bifurcating vessel running parallel to LAD) Circumflex (% Stenosis): Normal OM1 (% Stenosis): Normal L PL1 (% Stenosis): Normal L PL2 (% Stenosis): Normal RCA (% Stenosis): Normal R PDA (% Stenosis): Normal R PL1 (% Stenosis): Normal AM (% Stenosis): Normal Ramus (% Stenosis): Ostial (20%)
[~2021-12-16 06:12] MED LIST changes: +ACETAMINOPHEN 500 MG TAB PO SCH; -AMLO-110 PO; -AMT10 PO; -ASPI81TA28 PO; -ATOR10TA82 PO; -CYM/30 PO; +CeleBREX 200 MG CAP PO SCH; -FERR1TAB13 PO; -FLVHFA110 INH; +GABAPENTIN 600 MG DOSE PO SCH; -HYDC25 PO; +LR 15ML/HR IV SCH; -MAGN400T6 PO; -METO100T44 PO; -METO25TA3 PO; -NYST1POW7 TOP; -OMEP40CA PO; -POTA-639 PO; -ROPI3TAB PO; -VNTHFA/IN INH
[2021-12-16] MEDS ORDERED: SUGAMMADEX SODIUM 200 MG/2 ML VIAL IV ONE (07:03)
[2021-12-16] MEDS ORDERED: DEXAMETHASONE SOD INJ 4 MG/ML VIAL ONE (07:15)
[2021-12-16] MEDS ORDERED: ROCURONIUM BROMIDE 10 MG/ML 5 ML VIAL IV ONE (07:15)
[2021-12-16] MEDS ORDERED: ONDANSETRON INJ 2 MG/ML 2 ML VIAL ONE (07:15)
[2021-12-16] MEDS ORDERED: PROPOFOL IV EMULSION 10 MG/ML 20 ML VIAL IV ONE ×3 (07:15)
[2021-12-16] MEDS ORDERED: HYDROmorphone INJ 2 MG/ML SYR/VIAL ONE (07:15)
[2021-12-16] MEDS ORDERED: LIDOCAINE 2% MPF LOCAL 5 ML VIAL INFIL ONE (07:15)
--- NOTE | 2021-12-16 07:34 | History & Physical Bridge Note ---
Date of Service December 16, 2021 History & Physical Bridge Note I have examined the patient, reviewed the History & Physical and in the interval since the performance of the History & Physical I have noted the following changes of clinical significance: no changes noted
[2021-12-16] MEDS ORDERED: ceFAZolin 330 MG/ML 1 GM VIAL ONE (07:35)
[2021-12-16] MEDS ORDERED: BUPIVACAINE/EPINEPHRINE 0.25% 1:200,000 30 ML VIAL ONE (07:35)
--- NOTE | 2021-12-16 07:35 | History & Physical Report ---
Date of Service December 16, 2021 Assessment & Plan (1) Neurogenic claudication due to lumbar spinal stenosis: Plan: Lumbar decompression and fusion L5-S1 History of Present Illness Chief Complaint: Back and leg pain Primary Care Provider: Judy Hinson DO This is a 61-year-old female who presents with chronic persistent back and leg pain. Of failed course of nonoperative care she is here for surgical invention. Allergies Allergy/AdvReac Type Severity Reaction Status Date / Time morphine AdvReac Mild N/V Verified 12/16/21 06:28 Home Medications Medication Instructions Recorded Confirmed Type aspirin 81 mg tablet,delayed 81 mg PO QAM 11/16/19 12/16/21 History release (Aspir-) atorvastatin 40 mg tablet 40 mg PO QAM 11/16/19 12/16/21 History cholecalciferol (vitamin D3) 125 125 mcg PO QAM 11/16/19 12/16/21 History mcg (5,000 unit) tablet (Vitamin D3) docusate sodium 100 mg capsule 100 mg PO HS 11/16/19 12/16/21 History (Stool Softener) duloxetine 60 mg capsule,delayed 60 mg PO HS 11/16/19 12/16/21 History release sprinkle (Drizalma Sprinkle) ferrous sulfate 325 mg (65 mg 325 mg PO BID 11/16/19 12/16/21 History iron) tablet (iron) magnesium 250 mg tablet 500 mg PO QAM 11/16/19 12/16/21 History metoprolol succinate 100 mg 50 - 75 mg PO BID 11/16/19 12/16/21 History tablet,extended release 24 hr omeprazole 40 mg capsule,delayed 40 mg PO BID 11/16/19 12/16/21 History release ropinirole 3 mg tablet (Requip) 3 mg PO HS 11/16/19 12/16/21 History acetaminophen 325 mg tablet 975 mg PO Q6H PRN pain #30 tabs 12/09/19 12/16/21 Rx (Tylenol) losartan 25 mg tablet 50 mg PO QAM 11/04/21 12/16/21 History pregabalin 150 mg capsule (Lyrica) 150 mg PO TID 11/04/21 12/16/21 History Past Med/Surg History Medical History Acid reflux Controlled CAD (coronary artery disease) Mild, non-obstructive per 2018 cardiac cath Fibromyalgia Hiatal hernia High blood pressure High cholesterol Low back problem Hx injections (most recent 2019) Morbid obesity PSVT (paroxysmal supraventricular tachycardia) Restless leg syndrome Sleep apnea CPAP (complaint) Surgical History Family history of reaction to anesthesia Sister PONV History of back surgery No hardware History of cardiac cath 2017 (mild nonobstructive CAD, only 20% ostial ramus narrowing) History of colonoscopy Hx of dilation and curettage D&C, hysteroscopy, polypectomy (12/09/19): LMA 4 at [facility]. No issues noted per post-op anesthesia progress note. Hx of esophagogastroduodenoscopy Family History Other Family history of diabetes mellitus Social History Smoking Status: Never smoker Second Hand Exposure: No; Do You Dip or Chew Tobacco: No; Tobacco Cessation Education Requested by Patient: No Hx Alcohol Use: Yes Alcohol type: wine Hx Substance Use: No Preferred Language: Occitan Communication Ability: Effective Varnishing Machine Operator Required: No Beliefs That Will Affect Care: None Current Living Situation: Spouse Other Information That Helps Us Care for You: No Feels Safe at Home: Yes Safety Concerns: Feels Safe At This Time Assistive Devices: Denture - Upper, Denture - Lower and Glasses Physical Exam Physical Exam: Patient is alert and oriented Heart regular rhythm Lungs clear Results & Data Results & Data ([facility]) Vital Signs (Past 12 Hours) Vital Signs Temp Pulse Resp BP Pulse Ox O2 Del Method 12/16/21 06:35 37.1 C 60 18 180/60 H 96 Room Air 12/16/21 06:35 Room Air, CPAP
[2021-12-16] MEDS ORDERED: ATROPINE SULFATE 0.1 MG/ML 10ML SYR IV PRN (07:36)
[2021-12-16] MEDS ORDERED: ONDANSETRON INJ 2 MG/ML 2 ML VIAL IV PRN ×2 (07:36→11:34)
[2021-12-16] MEDS ORDERED: HYDROmorphone INJ 2 MG/ML SYR/VIAL IV PRN (07:36)
[2021-12-16] MEDS ORDERED: ePHEDrine sulfate 50 MG/ML AMP IV PRN (07:36)
[2021-12-16] MEDS ORDERED: FLOSEAL HEMOSTATIC MATRIX 10ML TOP ONE (08:37)
[2021-12-16] MEDS ORDERED: GLYCOPYRROLATE 0.2 MG/ML VIAL ONE (09:04)
[2021-12-16] MEDS ORDERED: ePHEDrine sulfate 50 MG/ML AMP ONE (09:04)
--- NOTE | 2021-12-16 09:22 | Operative Report ---
Post Operative Report Pre & Post Diagnosis Operation Date: 12/16/21 07:45 Pre-Op Diagnosis: Neurogenic Claudication due to Spinal Stenosis L5-S1 Post-Op Diagnosis: Neurogenic Claudication due to Spinal Stenosis L5-S1 I identified the patient and participated in the time-out.: Yes Procedure Operation Date: 12/16/21 07:45 Actual Procedures 1 revision decompression with bilateral medial facetectomies and foraminotomies L4-L5 L5-S1. #2 posterior spinal fusion L5-S1. #3 placement posterior instrumentation L5-S1. #4 interbody fusion L5-S1. #5 placement of Spira 13 x 26 mm cage at L5-S1. #6 placement locally harvested morselized autograft in the posterior lateral gutters. #7 placement of I factor combined with V toss in the interbody space and posterior lateral gutters. Surgeon Ken Palma, DO System Dispatcher Nichelle Lacey Estimated Blood Loss 100 Findings See Below The patient is 5 foot 10 weighing over 147 kg with a BMI in excess of 46. The patient's body habitus did contribute to significant technical difficulty requiring her deepest retractors and longer instruments in order to perform her procedure. This at least 50% increased operative time. Specimens None Indications This is a 61-year-old female who presents above-mentioned diagnosis after failing course of nonoperative care she is here for surgical invention. Description of Procedure Patient was met with identified informed consent obtained. Patient was then taken to the operative suite underwent ablation placed in a prone position on a Fernandez table on top of the Primitivo frame. All bony prominences well-padded eyes inspected to ensure no external pressure placed upon them. This point the lumbar spine was prepped and draped in normal sterile fashion. Sharp dissection with assistance of Bovie cautery performed down to and exposing the remaining lamina and transverse processes of L5 and the sacral ala bilaterally. From caudal cephalad fashion revision complete laminectomy of L5 partial laminectomy of L4 was performed including bilateral medial facetectomies and foraminotomies addressing severe spinal stenosis. Pedicle screws were then placed in L5 and S1 levels bilaterally with assistance of fluoroscopy and by way of a transforaminal approach on the left pleat discectomy of L5-S1 was performed endplates curetted to subcortical bleeding bone and a 13 x 26 mm spiral cage filled with I factor tapped in position. Rods were then compressed locked into final position bilaterally. The transverse processes of L5 and the sacral ala burred to subcortical bleeding bone. I factor combined with V toss and locally harvested morselized autograft placed in the posterior gutters. 15 round EMILY drain inserted. The incision was then closed with 1 Vicryl fascia 2-0 Vicryl subcutaneously and 4 Monocryl for final skin closure. Steri-Strip sterile dressings placed. Patient waken taken PACU stable condition. Please note spinal cord monitoring was utilized at the procedure no changes noted. Lastly Nichelle Lacey was present at the entire procedure and while the patient positioning complex portions of the surgery and final skin closure. I attest to the content of the Intraoperative Record and any orders documented therein. Any exceptions are noted below.
[2021-12-16] MEDS: fentaNYL citrate 100 MCG/2 ML VIAL IV PRN ×2 (09:59→10:45)
--- NOTE | 2021-12-16 10:32 | Anesthesiology Progress Note ---
Date of Service December 16, 2021 Anesthesia Post Procedure Vital Signs Vital Signs: Temp Pulse Pulse Resp BP Pulse Ox O2 Del Method 12/16/21 10:20 36.3 C L 80 20 153/68 H 97 Nasal Cannula 12/16/21 10:10 77 16 143/78 H 97 Nasal Cannula 12/16/21 10:00 78 15 147/88 H 98 Oxymask 12/16/21 09:50 81 15 154/86 H 95 Oxymask 12/16/21 09:41 36.4 C L 81 16 148/87 H 91 Oxymask 12/16/21 06:35 37.1 C 60 18 180/60 H 96 Room Air 12/16/21 06:35 Room Air, CPAP O2 Flow Rate 12/16/21 10:20 4 12/16/21 10:10 4 12/16/21 10:00 15 12/16/21 09:50 15 12/16/21 09:41 15 12/16/21 06:35 12/16/21 06:35 Pain Intensity Back: Pain Intensity: 3 Transfer of Care Handoff Completed per policy Notes Mental Status: alert / awake / arousable and participated in evaluation Patient Amnestic to Procedure: Yes Nausea / Vomiting: adequately controlled Pain: adequately controlled Airway Patency, RR, SpO2: stable & adequate BP & HR: stable & adequate Hydration State: stable & adequate Anesthetic Complications: no major complications apparent and Pt Satisfied with anesthetic care
--- NOTE | 2021-12-16 10:39 | Fluoroscopy Report ---
[place] lumbar spine 2-3V HISTORY: 61 years-old Female L5-S1 DECOMP/FUSION chronic low back pain COMPARISON: CT abdomen and pelvis 05/06/2021 TECHNIQUE: 2 spot fluoroscopic images of the lumbar spine were obtained utilizing 29.6 seconds fluoro scopy time FINDINGS: Posterior interbody aleks and screw fusion with discectomy at L5-S1. Satisfactory alignment. The hardwa re appears intact. No unexpected opaque foreign body. IMPRESSION: Fluoroscopic assistance as above. ACT 112: Negative or not required by law. The above report was generated using voice recognition software. It may contain grammatical, syntax o r spelling errors. Electronically signed by: Angel Torres M.D. 12/16/2021 10:38 AM
[2021-12-16] MEDS ORDERED: ONDANSETRON 4 MG OD TAB PO PRN (11:34)
[2021-12-16] MEDS ORDERED: LORazepam 0.5 MG TAB PO PRN (11:34)
[2021-12-16] MEDS ORDERED: FAMOTIDINE 20 MG TAB PO PRN (11:34)
[2021-12-16] MEDS ORDERED: diphenhydrAMINE Capsule 25 MG CAP PO PRN (11:34)
[2021-12-16] MEDS ORDERED: PROMETHAZINE HCL 12.5 MG in SODIUM CHLORIDE 0.9% 50 ML IV PRN (11:34)
[2021-12-16] MEDS ORDERED: ACETAMINOPHEN 500 MG TAB PO PRN (11:34)
[2021-12-16] MEDS ORDERED: ACETAMINOPHEN 1,000 MG/100 ML VIAL IV PRN (11:34)
[2021-12-16] MEDS ORDERED: hydrOXYzine HCl 25 MG TAB PO PRN (11:34)
[2021-12-16] MEDS ORDERED: LORazepam 0.5 MG in SYRINGE 0.25 ML IV PRN (11:34)
[2021-12-16] MEDS ORDERED: traMADol HCL 50 MG TABLET PO PRN (11:34)
[2021-12-16] MEDS ORDERED: METOCLOPRAMIDE HCL INJ 5 MG/ML 2 ML VIAL IV PRN (11:34)
[2021-12-16] MEDS ORDERED: MAGNESIUM HYDROXIDE SUSP 30 ML UDC PO PRN (11:34)
[2021-12-16] MEDS ORDERED: HYDROmorphone INJ 1 MG/ML SYRINGE IV PRN (11:34)
[2021-12-16] MEDS ORDERED: SOD PHOSPHATE/SOD BIPHOSPHATE ENEMA 132 ML BTL PR PRN (11:34)
[2021-12-16] MEDS ORDERED: bisacodyL 10 MG SUPP PR PRN (11:34)
[2021-12-16] MEDS ORDERED: ALUMINUM/MAGNESIUM SUSP 30 ML UDC PO PRN (11:34)
[2021-12-16] MEDS ORDERED: NALOXONE HCL 0.4 MG/1 ML VIAL/CARP IV PRN (11:34)
[2021-12-16] MEDS: SODIUM CHLORIDE 0.9% 1000ML 1,000 ML IV SCH ×2 (12:59→19:32)
--- NOTE | 2021-12-16 13:06 | Hospitalist Consultation ---
Date of Consultation December 16, 2021 Assessment & Plan (1) Neurogenic claudication due to lumbar spinal stenosis: POD#0 L5-S1 decompression and fusion with Dr. Palma Activity and wound care orders as per ortho Pain control with bowel regimen PT/OT Monitor H/H for acute blood loss anemia and transfuse blood products PRN EBL 100 cc (2) Hypertension: BP controlled, continue losartan, metoprolol, furosemide (3) CAD (coronary artery disease): Mild, nonobstructive on cardiac cath 2018 Appears stable, no reports of chest pain Continue ASA, statin, beta-rahul, ARB (4) PSVT (paroxysmal supraventricular tachycardia): Rate controlled on metoprolol (5) Sleep apnea: Continue CPAP as per home settings (6) Restless leg syndrome: (7) Fibromyalgia: Continue home meds (8) DVT prophylaxis: TEDs/SCDs as per spine Ortho Thank you for this consultation. We will follow the patient with you during their hospital stay. You can reach a [facility] via the [facility] role in [employer]. Supervising Physician Co-Signing Physician Notes Patient was seen and examined independently at bedside. Chart reviewed. Case discussed with Kenisha GALLEGOS and agree with the documentation above. In summary, this is a 61 year old female with lumbar spinal stenosis s/p back surgery today by Dr Palma. Sitting comfortably in bed. Pain is controlled. Tolerating oral intake without issues. No N/V/CP/SOB. Voiding without issues. vitals stable. AAO, chest clear, heart sounds normal, abd benign, EMILY drain with output noted, LE with compression stocking. Surgical management per primary team. Chronic medical conditions stable. Rest as per the note above. History of Present Illness Reason for Consultation: Postop medical management Requesting Physician: Dr. Palma History of Present Illness 61-year-old female with PMH dyslipidemia, asthma, VIOLETTE on CPAP, HTN, nonobstructive CAD on cardiac cath 2018, paroxysmal SVT, GERD, stage III CKD, RLS, fibromyalgia, JESSICA, depression, and other problems listed below who is s/p L5-S1 decompression and fusion today by Dr. Palma. Postoperatively, the patient is doing well. She reports her pain is well controlled. She has been up and ambulated to the bathroom and voided x 1. She denies numbness or ting ling to lower extremities. No radiation of the pain into either leg. Denies chest pain shortness of breath. No lightheadedness or dizziness. Denies abdominal pain or nausea. Allergies Allergy/AdvReac Type Severity Reaction Status Date / Time morphine AdvReac Mild N/V Verified 12/16/21 06:28 Home Medications Medication Instructions Recorded Confirmed Type aspirin 81 mg tablet,delayed 81 mg PO QAM 11/16/19 12/16/21 History release (Aspir-) atorvastatin 40 mg tablet 40 mg PO QAM 11/16/19 12/16/21 History cholecalciferol (vitamin D3) 125 125 mcg PO QAM 11/16/19 12/16/21 History mcg (5,000 unit) tablet (Vitamin D3) docusate sodium 100 mg capsule 100 mg PO HS 11/16/19 12/16/21 History (Stool Softener) ferrous sulfate 325 mg (65 mg 325 mg PO BID 11/16/19 12/16/21 History iron) tablet (iron) magnesium 250 mg tablet 500 mg PO QAM 11/16/19 12/16/21 History metoprolol succinate 100 mg 50 - 75 mg PO BID 11/16/19 12/16/21 History tablet,extended release 24 hr omeprazole 40 mg capsule,delayed 40 mg PO BID 11/16/19 12/16/21 History release ropinirole 3 mg tablet (Requip) 3 mg PO HS 11/16/19 12/16/21 History acetaminophen 325 mg tablet 975 mg PO Q6H PRN pain #30 tabs 12/09/19 12/16/21 Rx (Tylenol) losartan 25 mg tablet 50 mg PO QAM 11/04/21 12/16/21 History pregabalin 150 mg capsule (Lyrica) 150 mg PO TID 11/04/21 12/16/21 History duloxetine 60 mg capsule,delayed 60 mg PO HS 12/16/21 12/16/21 History release furosemide 20 mg tablet 40 mg PO DAILY 12/16/21 12/16/21 History meloxicam 7.5 mg tablet 7.5 mg PO DAILY 12/16/21 12/16/21 History Patient History Medical History (Updated 12/16/21 @ 13:13 by EL Murcia) Acid reflux Controlled CAD (coronary artery disease) Mild, non-obstructive per 2018 cardiac cath Fibromyalgia Hiatal hernia High blood pressure High cholesterol Low back problem Hx injections (most recent 2019) Morbid obesity PSVT (paroxysmal supraventricular tachycardia) Restless leg syndrome Sleep apnea CPAP (complaint) Surgical History Family history of reaction to anesthesia Sister PONV History of back surgery No hardware History of cardiac cath 2017 (mild nonobstructive CAD, only 20% ostial ramus narrowing) History of colonoscopy Hx of dilation and curettage D&C, hysteroscopy, polypectomy (12/09/19): LMA 4 at [facility]. No issues noted per post-op anesthesia progress note. Hx of esophagogastroduodenoscopy Family History Other Family history of diabetes mellitus Social History Smoking Status: Never smoker Second Hand Exposure: No; Do You Dip or Chew Tobacco: No; Tobacco Cessation Education Requested by Patient: No Hx Alcohol Use: No Hx Substance Use: No Preferred Language: South African Communication Ability: Effective Warehouse Assistant Required: No Beliefs That Will Affect Care: None Current Living Situation: Spouse Other Information That Helps Us Care for You: No Feels Safe at Home: Yes Safety Concerns: Feels Safe At This Time Assistive Devices: Glasses Assistive Devices Comment: Upper and lower dentures intact; Glasses intact Review of Systems Review of Systems: ROS per HPI, all other systems reviewed and negative Physical Exam Constitutional: WD/WN, vitals as above + obese Eyes: PERRL, conjunctivae normal, anicteric sclerae ENMT: external ear and nose normal, oropharynx normal Respiratory: normal respiratory effort, lungs clear to auscultation Cardiovascular: Rate/Rhythm: regular rate and regular rhythm Vessels: normal peripheral pulses Extremities: no edema Gastrointestinal (Abdomen): normal bowel sounds, soft, nontender, no hepatosplenomegaly Musculoskeletal: no cyanosis or clubbing, extremities motor strength 5/5 S/p back surgery, strength strong and equal BLE, drain in place draining bloody drainage Skin: no rashes, warm and dry Neurologic: PERRL, EOMI, accommodation nl, no face palsy, no dysarthria Psychiatric: A+Ox3, euthymic affect Results & Data Results & Data ([facility]) Vital Signs (Past 12 Hours) Vital Signs Temp Pulse Pulse Resp BP BP Pulse Ox 12/16/21 12:14 36.4 C L 73 17 134/75 98 12/16/21 11:41 36.3 C L 69 17 132/82 99 12/16/21 11:18 36.5 C 71 16 134/85 100 12/16/21 11:00 71 16 138/84 92 12/16/21 10:45 73 14 142/80 H 92 12/16/21 10:30 74 13 125/76 96 12/16/21 10:20 36.3 C L 80 20 153/68 H 97 12/16/21 10:10 77 16 143/78 H 97 12/16/21 10:00 78 15 147/88 H 98 12/16/21 09:50 81 15 154/86 H 95 12/16/21 09:41 36.4 C L 81 16 148/87 H 91 12/16/21 06:35 37.1 C 60 18 180/60 H 96 12/16/21 06:35 O2 Del Method O2 Flow Rate 12/16/21 12:14 Room Air 12/16/21 11:41 Nasal Cannula 2 12/16/21 11:18 Nasal Cannula 4 12/16/21 11:00 Nasal Cannula 4 12/16/21 10:45 Nasal Cannula 2 12/16/21 10:30 Nasal Cannula 4 12/16/21 10:20 Nasal Cannula 4 12/16/21 10:10 Nasal Cannula 4 12/16/21 10:00 Oxymask 15 12/16/21 09:50 Oxymask 15 12/16/21 09:41 Oxymask 15 12/16/21 06:35 Room Air 12/16/21 06:35 Room Air, CPAP
[2021-12-16] MEDS: oxyCODONE HCL IR 5 MG TAB (IMMEDIATE RELEASE) PO PRN ×2 (13:50→22:33)
[2021-12-16] MEDS: PREGABALIN 150 MG CAP PO SCH ×2 (13:50→19:45)
[2021-12-16] MEDS: ceFAZolin 2000MG 2,000 MG/15 ML SYR IV SCH (18:00)
[2021-12-16] MEDS: DOCUSATE SODIUM/SENNA 50/8.6MG TAB PO SCH (19:33)
[2021-12-16] MEDS: DULoxetine HCL 60 MG CAP PO SCH (19:34)
[2021-12-16] MEDS: FERROUS SULFATE 325 MG TAB PO SCH (19:35)
[2021-12-16] MEDS: METOPROLOL SUCC 25MG EXT REL TAB PO SCH (19:35)
[2021-12-16] MEDS: PANTOprazole 40 MG TAB PO SCH (19:36)
[2021-12-16] MEDS ORDERED: DULoxetine HCL 60 MG CAP PO SCH (21:00)
[2021-12-16] MEDS ORDERED: METOPROLOL SUCC 50MG EXT REL TAB PO SCH (21:00)
[2021-12-16] MEDS: rOPINIRole HCL 1 MG TABLET PO SCH (22:33)
[2021-12-17] MEDS: ceFAZolin 2000MG 2,000 MG/15 ML SYR IV SCH (00:50)
[2021-12-17] MEDS: SODIUM CHLORIDE 0.9% 1000ML 1,000 ML IV SCH (02:20)
[2021-12-17] MEDS: POLYETHYLENE (MIRALAX) 17 GM PACK PO SCH ×3 (06:18→17:13)
[2021-12-17 06:46] LABS: Basophils # (auto) 0.01 K/uL (0-0.2); Basophils % (auto) 0.2 %; Hemoglobin 10.6 g/dl (12.0-16.0); Immature Granulocytes # (auto) 0.01 K/uL (0.00-0.02); Immature Granulocytes % (auto) 0.2 %; Lymphocytes # (auto) 0.93 K/uL (1.2-3.4); Lymphocytes % (auto) 15.3 %; Mean Corpuscular Hemoglobin 28.2 pg (25.0-34.0); Mean Corpuscular Hgb Conc 32.1 g/dL (32.0-36.0); Mean Corpuscular Volume 87.8 fL (80.0-100.0); Mean Platelet Volume 10.5 fL (9.4-12.3); Monocytes # (auto) 0.28 K/uL (0.24-0.82); Monocytes % (auto) 4.6 %; Neutrophils # (auto) 4.86 K/uL (1.4-6.5); Neutrophils % (auto) 79.7 %; Platelet Count 230 K/uL (130-400); RDW Coefficient of Variation 14.1 % (11.5-14.5); RDW Standard Deviation 44.9 fL (36.4-46.3); Red Blood Count 3.76 M/uL (3.93-5.22); White Blood Count 6.09 K/ul (4.8-10.8)
[2021-12-17 07:09] LABS: BUN Creatinine Ratio 16.3 (10-20); Calcium 8.4 mg/dl (8.5-10.1); Creatinine Clr Calc Pharmacy 92.7 ml/min; Est GFR (African American) 71.2 ml/min; Est GFR (Non-African American) 61.4 ml/min; Potassium 4.7 mmol/L (3.5-5.1)
[2021-12-17] MEDS: oxyCODONE HCL IR 5 MG TAB (IMMEDIATE RELEASE) PO PRN ×3 (07:31→22:26)
--- NOTE | 2021-12-17 08:29 | Orthopedic Progress Note ---
Date of Service December 17, 2021 Assessment & Plan (1) Neurogenic claudication due to lumbar spinal stenosis: Plan: This time we will continue physical therapy monitor her EMILY output hopefully discharge home in the next few days. Admission and Anticipated Discharge Date Admission Date: December 16, 2021 Subjective Back pain controlled leg symptoms markedly improved Physical Exam Physical Exam: Patient is in bed. Appears comfortable. Excellent strength testing. Results & Data ([facility]) Vital Signs (Past 12 Hours) Vital Signs Temp Pulse Resp BP BP Pulse Ox O2 Del Method 12/17/21 07:32 36.5 C 58 L 16 138/82 95 Room Air 12/17/21 04:35 36.7 C 60 18 130/78 94 Room Air 12/16/21 22:35 36.5 C 63 16 143/82 H 90 Room Air 12/16/21 20:53 36.4 C L 72 18 148/84 H 96 Room Air
[2021-12-17] MEDS: PANTOprazole 40 MG TAB PO SCH ×2 (08:35→19:35)
[2021-12-17] MEDS: PREGABALIN 150 MG CAP PO SCH ×3 (08:35→19:41)
[2021-12-17] MEDS: FERROUS SULFATE 325 MG TAB PO SCH ×2 (08:36→19:33)
[2021-12-17] MEDS: ASPIRIN 81 MG ECTAB PO SCH (08:36)
[2021-12-17] MEDS: MAGNESIUM OXIDE 400 MG TAB PO SCH (08:36)
[2021-12-17] MEDS: LOSARTAN POTASSIUM 50 MG TAB PO SCH (08:36)
[2021-12-17] MEDS: ATORVASTATIN 40 MG TAB PO SCH (08:36)
[2021-12-17] MEDS: METOPROLOL SUCC 50MG EXT REL TAB PO SCH (08:36)
[2021-12-17] MEDS: CHOLECALCIFEROL 5,000 UNITS 125 MCG TAB PO SCH (08:36)
[2021-12-17] MEDS: FUROSEMIDE 40 MG TAB PO SCH (08:36)
[2021-12-17] MEDS: dexAMETHasone 6 MG in SYRINGE 0 ML IV SCH (08:37)
--- NOTE | 2021-12-17 14:13 | Hospitalist Progress Note ---
Date of Service December 17, 2021 Assessment & Plan (1) Neurogenic claudication due to lumbar spinal stenosis: Plan: POD#1 L5-S1 decompression and fusion with Dr. Palma Activity and wound care orders as per ortho Pain control with bowel regimen Preop Hb 11.6. Hb is 10.6 today Monitor (2) Hypertension: Plan: BP controlled Continue losartan (3) CAD (coronary artery disease): Plan: Mild, nonobstructive on cardiac cath 2018 Appears stable, no reports of chest pain Continue ASA, statin, metoprolol succinate, losartan (4) PSVT (paroxysmal supraventricular tachycardia): Plan: Rate controlled on metoprolol (5) Sleep apnea: Plan: Morbid obesity Continue CPAP as per home settings Counseled on need for weight loss (6) Restless leg syndrome: (7) Fibromyalgia: Plan: Continue home meds (8) DVT prophylaxis: Plan: TEDs/SCDs as per spine Ortho Admission and Anticipated Discharge Date Admission Date: December 16, 2021 Subjective Patient seen and examined Reports op site pain is controlled Has been walking around with therapist Yet to move her bowel but passing flatus Denied any other complaints on ROS Physical Exam Constitutional: + well hydrated and + obese; no acute distress Eyes: PERRL, conjunctivae normal, anicteric sclerae ENMT: external ear and nose normal, oropharynx normal Respiratory: normal respiratory effort, lungs clear to auscultation Cardiovascular: Rate/Rhythm: regular rate and regular rhythm S1 S2 Gastrointestinal (Abdomen): normal bowel sounds, soft, nontender, no hepatosplenomegaly Musculoskeletal: Dressing over surgical site Drain in situ Neurologic: PERRL, EOMI, accommodation nl, no face palsy, no dysarthria Psychiatric: A+Ox3, euthymic affect Results & Data Results & Data ([facility]) Vital Signs (Past 12 Hours) Vital Signs Temp Pulse Resp BP BP Pulse Ox O2 Del Method 12/17/21 11:17 36.4 C L 57 L 16 147/76 H 96 Room Air 12/17/21 07:32 36.5 C 58 L 16 138/82 95 Room Air 12/17/21 04:35 36.7 C 60 18 130/78 94 Room Air Laboratory Results Abnormal lab results 12/17/21 12/17/21 Range/Units 06:28 06:28 RBC 3.76 L (3.93-5.22) M/uL Hgb 10.6 L (12.0-16.0) g/dl Hct 33.0 L (34.1-44.9) % Lymph # (Auto) 0.93 L (1.2-3.4) K/uL Glucose 116 H (70-99(Fasting)) mg/dl Calcium 8.4 L (8.5-10.1) mg/dl
[2021-12-17] MEDS: DULoxetine HCL 60 MG CAP PO SCH (19:33)
[2021-12-17] MEDS: DOCUSATE SODIUM/SENNA 50/8.6MG TAB PO SCH (19:33)
[2021-12-17] MEDS: METOPROLOL SUCC 25MG EXT REL TAB PO SCH (19:34)
[2021-12-17] MEDS: HYDROmorphone INJ 0.5 MG/0.5 ML SYR IV PRN (19:40)
[2021-12-17] MEDS: rOPINIRole HCL 1 MG TABLET PO SCH (22:23)
[2021-12-18] MEDS: POLYETHYLENE (MIRALAX) 17 GM PACK PO SCH ×3 (00:20→11:09)
[2021-12-18 07:11] LABS: Hematocrit (blood only) 32.2 % (34.1-44.9); Hemoglobin 10.3 g/dl (12.0-16.0); Mean Corpuscular Hemoglobin 28.5 pg (25.0-34.0); Mean Corpuscular Volume 89.2 fL (80.0-100.0); Mean Platelet Volume 10.8 fL (9.4-12.3); Platelet Count 223 K/uL (130-400); RDW Coefficient of Variation 14.2 % (11.5-14.5); RDW Standard Deviation 46.4 fL (36.4-46.3); Red Blood Count 3.61 M/uL (3.93-5.22); White Blood Count 6.45 K/ul (4.8-10.8)
[2021-12-18] MEDS: dexAMETHasone 6 MG in SYRINGE 0 ML IV SCH (08:02)
[2021-12-18] MEDS: PREGABALIN 150 MG CAP PO SCH (08:02)
[2021-12-18] MEDS: oxyCODONE HCL IR 5 MG TAB (IMMEDIATE RELEASE) PO PRN (08:02)
[2021-12-18] MEDS: LOSARTAN POTASSIUM 50 MG TAB PO SCH (08:03)
[2021-12-18] MEDS: MAGNESIUM OXIDE 400 MG TAB PO SCH (08:03)
[2021-12-18] MEDS: PANTOprazole 40 MG TAB PO SCH (08:03)
[2021-12-18] MEDS: METOPROLOL SUCC 50MG EXT REL TAB PO SCH (08:04)
[2021-12-18] MEDS: FERROUS SULFATE 325 MG TAB PO SCH (08:04)
[2021-12-18] MEDS: ASPIRIN 81 MG ECTAB PO SCH (08:04)
[2021-12-18] MEDS: CHOLECALCIFEROL 5,000 UNITS 125 MCG TAB PO SCH (08:04)
[2021-12-18] MEDS: ATORVASTATIN 40 MG TAB PO SCH (08:04)
[2021-12-18] MEDS: FUROSEMIDE 40 MG TAB PO SCH (08:04)
--- NOTE | 2021-12-18 10:07 | Discharge Summary ---
Date of Service December 18, 2021 Admission HPI Per Admitting Provider This is a 61-year-old female who presents with chronic persistent back and leg pain. Of failed course of nonoperative care she is here for surgical invention. Principal Diagnosis Lumbar spinal stenosis with radiculopathy Discharge Data Allergies Allergy/AdvReac Type Severity Reaction Status Date / Time morphine AdvReac Mild N/V Verified 12/16/21 06:28 Consultations 12/16/21 11:34 Consult Hospitalist Routine Procedures Performed Operation Date: 12/16/21 07:45 Actual Procedures p L5-S1 Posterior Decompression and Fusion, Application of Vitoss and IFactor Bone Graft, Interbody Fusion, Spinal Cord Monitoring(Not Applicable) - Ken Palma DO Ordered Studies 12/16/21 [place] lumbar spine 2-3V Routine Hospital Course (1) Neurogenic claudication due to lumbar spinal stenosis: Patient with lumbar decompression fusion tolerated this well was taken to orthopedic for postoperative postop and when she was up and ambulating progressed to postop day #2. Pain well controlled. Excellent strength testing. Separately discharged home. I did discharge home with her drain in place. She will follow-up tomorrow in our office for dressing change and removal. Discharge orders instructions from the chart for further review. Total Time Total Time Spent Total Time Spent (In Minutes): 20 minutes Discharge Plan Discharge Items Patient Disposition: Home - Self-Care Reason For Visit: Intervertebral disc disorders with radiculopathy, Discharge Diagnosis: Lumbar spinal stenosis with radiculopathy Activity: As commented below Non-emergency contact: Primary Care Provider Call non-emergency contact if: you have any medication questions Follow-up/Referrals: Judy Hinson DO [Primary Care Provider] - Diet: Regular Addtl Attending Provider Instructions: ACTIVITY RECOMMENDATIONS: SELF CARE INSTRUCTIONS AFTER THORACIC/LUMBAR FUSIONS 1. You may walk to your tolerance. It is good exercise for your legs and back. Expect some back and intermittent leg aches and pains. 2. You may perform "counter-top" level activities (make a sandwich, denice with a project, etc.). 3. No bending or lifting of more than 10 pounds or back twisting of any nature (roll like a log when turning in bed). 4. You may ride in a car for 20-30 minutes at a time. No driving until after your first visit with your doctor. 5. Frequent changes of position and restricting sitting to 30 minutes at a time will help limit the amount of back spasms and stiffness you may experience. 6. You may discontinue the use of ambulatory aids (cane, crutches, etc.) once your strength and confidence allow. 7. You may medical appointment clerk the shower and let water strike your incision when you arrive home at least once daily. Do not take a tub bath, sit in a hot tub or go into a swimming pool until after your first recheck in the office. SPECIAL CARE INSTRUCTIONS: VERY IMPORTANT TO READ AND REVIEW A. Your surgical incision has been closed with a cosmetic suture under the skin that will dissolve in about 6 weeks. In 14 days, you can use a pair of clean scissors and cut the suture that is left outside of the skin at the ends of your incision. 1. The small skin tapes can be removed 7 days after surgery if they have not fallen off by that point. 2. You may keep the wound open to air as much as possible to promote healing after post-op day number 5 unless told otherwise by your doctor. 3. If you think the wound looks like it is becoming infected (redness or worsening drainage) and/or you are experiencing fever, chill or worsening back pain and muscle spasms, contact the office so that we may evaluate you as soon as possible. B. Complications are uncommon, but please contact us if you have any signs or symptoms of: 1. wound infection (fever higher than 102.5 degrees F, redness, separation of wound, drainage, or increasing pain from the incision) 2. blood clots in legs (pain, swelling, redness and warmth in legs) 3. urinary tract infection (fever higher than 102.5 degrees F, burning upon urination or increased frequency of urination) 4. nerve problems (inability to walk on your toes or heels, numbness, loss of bowel or bladder control) 5. any other symptoms that concern you C. Please call the office at if you have any concerns or questions about your operation or recovery. D. No smoking! Smoking drastically decreases the chance of a solid fusion. E. Do not take any anti-inflammatory medications (Indocin, Advil, Motrin, Aspirin, Naprosyn, etc.) as these may inhibit the chance of a solid fusion. Tylenol is okay to take for pain. MANAGING PAIN AFTER SPINAL SURGERY 1. Narcotic medication is intended for short-term use and will be provided for surgical pain. Surgical pain usually lasts for a period of 4-6 weeks. Narcotic medication includes Percocet, Vicodin, Darvocet, Tylenol #3 or Lortab. 2. Longer-term pain is more appropriately treated with non-narcotic medication such as Tylenol ES. 3. Muscle spasm is not appropriately treated with narcotics. Muscle relaxers such as Soma, Flexeril or Skelaxin can be used along with Tylenol ES. 4. Remember that we all live with some "aches and pains". This is not unusual or uncommon after an injury or as we get older. a. Back pain is expected and may include muscle spasms for 4 to 6 weeks after surgery. The pain should gradually improve. If the pain worsens for no apparent reason, please contact the office. b. Intermittent leg pain may also be experienced and should not be concerned about unless it worsens for no apparent reason. If so, please contact the office. 5. We will provide appropriate medication within the normal guidelines of their prescribed use. We will also be very cautious and aware of potential abuse and extended duration of patients' medication needs. a. Pain medications are for your comfort and to assist with sleep and rest so that the tissue can heal. They are not provided in order to return to normal activity and should not be used through the day. To do so or worsening pain at night can result from ongoing tissue damage and development of tolerance to the prescribed medicine. 6. Please allow 2-3 days to process refills. Prescriptions will not be mailed but must be picked up at the office. FOLLOW UP VISIT: Keep your scheduled follow-up appointment. Any questions, please call the office at . Pending Studies at Discharge: No Stand-Alone Forms: [employer], Smoking Cessation Medications and DC Order Prescriptions: New oxycodone 5 mg tablet 5 mg PO Q6H PRN (Reason: pain, severe) Qty: 30 0RF tramadol 50 mg tablet 50 mg PO Q6H PRN (Reason: pain, moderate) Qty: 30 0RF Continued atorvastatin 40 mg Tablet 40 mg PO QAM ropinirole [Requip] 3 mg Tablet 3 mg PO HS metoprolol succinate 100 mg Tablet Extended Release 24 Hr 50 - 75 mg PO BID Label Comments: METORPOLOL ER Rx Instructions: 50 mg in am and 75mg in pm omeprazole 40 mg Capsule,Delayed Release(Dr/Ec) 40 mg PO BID aspirin [Aspir-81] 81 mg Tablet,Delayed Release (Dr/Ec) 81 mg PO QAM ferrous sulfate [iron] 325 mg (65 mg iron) Tablet 325 mg PO BID docusate sodium [Stool Softener] 100 mg Capsule 100 mg PO HS magnesium 250 mg Tablet 500 mg PO QAM cholecalciferol (vitamin D3) [Vitamin D3] 125 mcg (5,000 unit) Tablet 125 mcg PO QAM acetaminophen [Tylenol] 325 mg tablet 975 mg PO Q6H PRN (Reason: pain) Qty: 30 0RF losartan 25 mg Tablet 50 mg PO QAM pregabalin [Lyrica] 150 mg Capsule 150 mg PO TID meloxicam 7.5 mg tablet 7.5 mg PO DAILY furosemide 20 mg tablet 40 mg PO DAILY duloxetine 60 mg capsule,delayed release(DR/EC) 60 mg PO HS Discharge Orders: Discharge Order (Routine); Ordered 12/18/21 Ordered By: Ken Palma Admission Data Admit Date/Time: 12/16/21 09:25 Attending Provider: Ken Palma Admit Provider: Ken Palma Primary Care Provider: Judy Hinson. Other Providers: Avis Au ; Sadie Dia
[2021-12-18] MEDS: HYDROmorphone INJ 0.5 MG/0.5 ML SYR IV PRN (10:45)
--- NOTE | 2021-12-18 17:27 | Hospitalist Progress Note ---
Date of Service December 18, 2021 Assessment & Plan (1) Neurogenic claudication due to lumbar spinal stenosis: Plan: POD#2 L5-S1 decompression and fusion with Dr. Palma Activity and wound care orders as per ortho Pain control with bowel regimen Hemoglobin fairly closer to baseline. Patient reports improvement in her pain. (2) Hypertension: Plan: BP controlled Continue losartan (3) CAD (coronary artery disease): Plan: Mild, nonobstructive on cardiac cath 2018 Appears stable, no reports of chest pain Continue ASA, statin, metoprolol succinate, losartan (4) PSVT (paroxysmal supraventricular tachycardia): Plan: Rate controlled on metoprolol (5) Sleep apnea: Plan: Morbid obesity Continue CPAP as per home settings Counseled on need for weight loss (6) Restless leg syndrome: (7) Fibromyalgia: Plan: Continue home meds (8) DVT prophylaxis: Plan: TEDs/SCDs as per spine Ortho Admission and Anticipated Discharge Date Admission Date: December 16, 2021 Subjective Patient seen and examined at bedside as a follow-up office status post lumbar surgery for neurogenic claudication due to lumbar spinal stenosis. Patient was lying in bed, on room air, NAD, reports pain under control, denies any acute events overnight, reports eating okay, moving gas, has not moved bowels yet. Patient denies any belly pain/headache/dizziness/other review of symptoms. Physical Exam Physical Exam: GENERAL: Alert and oriented x3. NAD, on RA. Morbidly obese. HEENT: No pallor, no icterus. Pupils equal, round and reactive to light. Oral mucosa moist. NECK: No JVD, no neck masses. HEART: S1 and S2 heard. Regular rate and rhythm. No murmur, no gallop. RESPIRATORY SYSTEM: Normal AP diameter. No accessory muscle use. No wheezing, no crackles. ABDOMEN: Soft, bowel sounds present, nontender, no distention. CENTRAL NERVOUS SYSTEM: No facial droop. Speech is clear. Obeys simple commands. Moves extremities. EXTREMITIES: No edema, no erythema seen. Low back with clean dressing with a sulcus, EMILY drain in situ with minimal to moderate serosanguineous collection noted. Results & Data Results & Data ([facility]) Vital Signs (Past 12 Hours) Vital Signs Temp Pulse Resp BP BP Pulse Ox O2 Del Method 12/18/21 10:32 36.3 C L 58 L 16 144/78 H 122/71 94 12/18/21 05:43 36.3 C L 58 L 16 122/71 94 Room Air
== END 2021-12-18 12:47 | disposition home or self-care (01) | DRG 454 ==
LOC: ASU 06:12 → 3E 09:25